=== PATIENT | male | born 1935 | race Caucasian/White ===

== ENCOUNTER → 2016-11-06 | Outpatient (REF) ==
[~2016-11-06] MED LIST: ASPIRIN 32325 MG/TAB PO; CENA K20 MEQ/15 PO; COUMADIN 1MG1 MG/TAB PO; COUMADIN 2MG2 MG/TAB PO; COUMADIN 3MG3 MG/TAB PO; ENALAPRIL10 MG PO; FERROUS GLUCON240 MG PO; FLEXERIL10 MG PO; FOSAMAX 70MG TA70 MG PO; HCTZ PO; LASIX 20MG TABL20 MG PO; MACROBID 1100 MG/CAP PO; MEGACE 40MG40 MG/TAB PO; MIRTAZAPINE15 MG PO; PEPCID 20MG TAB20 MG PO; POLYETHYLENE GL1 PO6; QUALITY CHOICE PO; REGLAN 10MG10 MG/TAB PO; REMERON 15M15 MG/TA1 PO; ULTRAM 50MG TAB50 MG PO
== END ==
LOC: ZLAB.WCH 10:13
DX: Z01.89 Encounter for other specified special examinations (principal)
CPT/HCPCS: G0103

== ENCOUNTER → 2016-11-28 | Outpatient (REF) ==
[2016-11-28 17:19] LABS: TOTAL IRON BINDING CAPACITY 156 ug/dL (261-462)
[2016-11-28 18:33] LABS: FERRITIN 1780 ng/mL (18-464)
== END ==
LOC: ZLAB.WCH 16:59
PROVIDERS: Physician Assistant
DX: Z01.89 Encounter for other specified special examinations (principal)

== ENCOUNTER → 2017-03-10 | Outpatient (REF) | LOC: ZLAB.WCH 10:51 | DX: Z01.89 Encounter for other specified special examinations (principal) ==

== ENCOUNTER 2017-04-05 16:34 | Emergency (ER) | payer MEDICARE, BC ==
[~2017-04-05] VITALS: Ht 172.7 cm; Wt 72.7 kg
[~2017-04-05 16:34] MED LIST changes: -CENA K20 MEQ/15 PO; -COUMADIN 1MG1 MG/TAB PO; -FOSAMAX 70MG TA70 MG PO; -MACROBID 1100 MG/CAP PO; -MEGACE 40MG40 MG/TAB PO
[2017-04-05 16:36] VITALS: TEMP 98.2
[2017-04-05] MEDS ORDERED: ASPIRIN 32325 MG/TAB PO (16:56)
[2017-04-05] MEDS ORDERED: COUMADIN 1MG1 MG/TAB PO (16:57)
[2017-04-05] MEDS ORDERED: FOSAMAX 70MG TA70 MG PO (16:58)
[2017-04-05] MEDS ORDERED: MEGACE 40MG40 MG/TAB PO (16:59)
[2017-04-05] MEDS ORDERED: LASIX 20MG TABL20 MG PO (16:59)
[2017-04-05] MEDS ORDERED: CENA K20 MEQ/15 PO (17:00)
[2017-04-05 17:46] LABS: BASO % 0.5 % (0.0-2.0); EOS # 0.2 (0.0-0.7); EOS % 1.7 % (0-4.0); GRAN # 6.4 (1.4-6.5); GRAN % 73.4 % (42.2-75.2); HEMATOCRIT 25.6 % (42.0-52.0); HEMOGLOBIN 8.1 g/dl (13.5-18.0); LYMPH # 1.3 (1.2-3.4); LYMPH % 14.3 % (20.0-51.0); MEAN CELL VOLUME 106 fl (80.0-100.0); MEAN CORPUSCULAR HEMOGLOBIN 34 pg (27.0-31.0); MEAN CORPUSCULAR HGB CONC 32 g/dl (33.0-37.0); MEAN PLATELET VOLUME 10.9 fl (7.4-10.4); MONO # 0.8 (0.1-0.6); MONO % 9.6 % (1.7-9.3); PLATELET COUNT 166 K/mm3 (130-400); RED BLOOD COUNT 2.41 M/mm3 (4.20-5.60); REDCELL DISTRIBUTION WIDTH-CV 14.1 % (11.5-14.5); WHITE BLOOD COUNT 8.7 K/mm3 (4.8-10.8)
[2017-04-05 18:01] LABS: ALBUMIN 3.3 gm/dL (3.5-5.0); BILIRUBIN,TOTAL 0.5 mg/dL (0.0-1.0); CALCIUM 8.4 mg/dL (8.4-10.2); CREATININE, serum 2.23 mg/dL (0.66-1.25); POTASSIUM 4.1 mmol/L (3.4-5.0); TOTAL PROTEIN 6.5 gm/dL (6.4-8.2)
[2017-04-05 18:14] LABS: INR 2.6 (0.8-3.0); PROTHROMBIN TIME 29.1 SECONDS (9.7-12.8)
[2017-04-05 18:17] LABS: PARTIAL THROMBOPLASTIN TIME 37.2 SECONDS (26.0-37.0)
[2017-04-05 19:11] VITALS: BP 133/72; PULSE 101
[2017-04-05 19:21] LABS: PH 7 (5-8); SQUAMOUS EPITHELIAL None Seen /hpf; URINE APPEARANCE Clear; URINE BACTERIA None Seen /hpf; URINE BILIRUBIN Negative (NEGATIVE); URINE BLOOD 1+ (NEGATIVE); URINE COLOR Yellow; URINE GLUCOSE Negative (NEGATIVE); URINE KETONE Negative (NEGATIVE); URINE UROBILINOGEN Negative (NEGATIVE)
[2017-04-05 19:22] LABS: URINE WBC 20-50 /hpf
[2017-04-08] MEDS ORDERED: MACROBID 1100 MG/CAP PO (10:43)
== END 2017-04-05 19:33 | disposition left against medical advice (07) ==
LOC: COL.ER 16:34
PROVIDERS: Emergency Medicine
DX: I11.0 Hypertensive heart disease with heart failure (principal); I50.9 Heart failure, unspecified; N48.89 Other specified disorders of penis; N50.89 Other specified disorders of the male genital organs; Z79.01 Long term (current) use of anticoagulants; Z86.718 Personal history of other venous thrombosis and embolism; K74.60 Unspecified cirrhosis of liver; Z85.46 Personal history of malignant neoplasm of prostate; D64.9 Anemia, unspecified; R60.0 Localized edema
CPT/HCPCS: J1940

== ENCOUNTER → 2017-06-09 | Outpatient (REF) ==
[~2017-06-09] MED LIST changes: +CENA K20 MEQ/15 PO; +COUMADIN 1MG1 MG/TAB PO; +FOSAMAX 70MG TA70 MG PO; +MACROBID 1100 MG/CAP PO; +MEGACE 40MG40 MG/TAB PO
== END ==
LOC: ZLAB.WCH 20:25
DX: Z01.89 Encounter for other specified special examinations (principal)
CPT/HCPCS: G0103

== ENCOUNTER → 2017-08-15 | Outpatient (REF) | LOC: ZLAB.WCH 21:30 | DX: Z01.89 Encounter for other specified special examinations (principal) ==

== ENCOUNTER → 2017-12-12 | Outpatient (REF) | LOC: ZLAB.WCH 18:06 | DX: Z01.89 Encounter for other specified special examinations (principal) | CPT/HCPCS: G0103 ==

== ENCOUNTER → 2017-12-26 | Outpatient (REF) ==
[2017-12-26 18:51] LABS: THYROID STIMULATING HORMONE 3.33 uIU/mL (0.465-4.680)
== END ==
LOC: ZLAB.WCH 18:00
PROVIDERS: Internal Medicine
DX: Z01.89 Encounter for other specified special examinations (principal)

== ENCOUNTER → 2018-05-25 | Outpatient (REF) ==
[2018-05-25 17:10] LABS: PSA-TOTAL 6.81 ng/mL (0-4)
== END ==
LOC: ZLAB.WCH 16:16
PROVIDERS: Internal Medicine
DX: Z12.5 Encounter for screening for malignant neoplasm of prostate (principal)
CPT/HCPCS: G0103

== ENCOUNTER → 2018-07-14 | Outpatient (REF) | LOC: ZLAB.WCH 16:07 | DX: Z01.89 Encounter for other specified special examinations (principal) | CPT/HCPCS: G0103 ==

== ENCOUNTER → 2018-12-18 | Outpatient (REF) | LOC: ZLAB.WCH 14:43 | DX: Z01.89 Encounter for other specified special examinations (principal) | CPT/HCPCS: G0103 ==

== ENCOUNTER → 2019-02-01 | Outpatient (REF) ==
[2019-02-01 17:55] LABS: IRON,SERUM 89 ug/dL (35-150)
[2019-02-01 18:04] LABS: TOTAL IRON BINDING CAPACITY 274 ug/dL (261-462)
[2019-02-01 18:32] LABS: FERRITIN 789 ng/mL (18-464)
== END ==
LOC: ZLAB.WCH 17:38
PROVIDERS: Internal Medicine
DX: Z01.89 Encounter for other specified special examinations (principal)